=== PATIENT | female | born 1965 | race Caucasian/White ===

== ENCOUNTER 2017-06-18 09:29 | Emergency (ER) | payer BC ==
[2017-06-18 09:45] VITALS: BMI 37.5
[2017-06-18] MEDS ORDERED: Albuterol 0.083% Inhal Sol (2.5 mg/3 mL) UD IH STA (10:01)
[2017-06-18] MEDS ORDERED: Albuterol 0.083% Inhal Sol (2.5 mg/3 mL) UD ONE (10:25)
--- NOTE | 2017-06-18 11:06 | C.PDOC ---
History Of Present Illness 51 year old female presents to the ED c/o nonproductive cough and shortness of breath for the past week. She is status post antibiotic use last week, name of antibiotic unknown. Patient also seen again by her doctor yesterday, who prescribed an albuterol inhaler. Patient reports using the inhaler this morning after which she began feeling her heart racing and became anxious prompting her to come to the ED. She denies fever, sore throat, ear pain, chest pain, rash. She admits to mild rhinorrhea. Patient is a nonsmoker. Time Seen by Provider: 06/18/17 09:43 Chief Complaint (Nursing): Cough, Cold, Congestion History Per: Patient History/Exam Limitations: no limitations Onset/Duration Of Symptoms: Mins Current Symptoms Are (Timing): Better Severity: Mild Reports Recently: Treated By A Physician Past Medical History Reviewed: Historical Data, Nursing Documentation, Vital Signs Vital Signs: Last Vital Signs Temp 97.4 F L 06/18/17 11:46 Pulse 89 06/18/17 11:46 Resp 20 06/18/17 11:46 BP 112/65 06/18/17 11:46 Pulse Ox 99 06/18/17 15:59 - Medical History PMH: Anxiety, Bronchitis Family History: States: No Known Family Hx - Social History Hx Tobacco Use: No Hx Alcohol Use: No Hx Substance Use: No - Immunization History Hx Tetanus Toxoid Vaccination: No Hx Influenza Vaccination: No Hx Pneumococcal Vaccination: No Review Of Systems Except As Marked, All Systems Reviewed And Found Negative. Constitutional: Negative for: Fever ENT: Positive for: Nose Congestion. Negative for: Ear Pain, Throat Pain Cardiovascular: Positive for: Palpitations. Negative for: Chest Pain Respiratory: Positive for: Cough, Shortness of Breath Gastrointestinal: Negative for: Nausea, Vomiting, Abdominal Pain, Diarrhea Skin: Negative for: Rash Psych: Positive for: Anxiety Physical Exam - Physical Exam Appears: Well, Non-toxic, Other (appears anxious, Speaking in full sentences ) Skin: Normal Color, Warm, Dry, No Rash Oral Mucosa: Moist Throat: Normal, No Erythema, No Exudate, No Drooling Neck: Normal, Normal ROM Lymphatic: No Adenopathy Cardiovascular: Rhythm Regular Respiratory: Normal Breath Sounds, No Accessory Muscle Use, No Rales, No Rhonchi , No Wheezing Extremity: Normal ROM, No Pedal Edema, No Calf Tenderness Neurological/Psych: Oriented x3 ED Course And Treatment ECG: Interpreted By Me, Viewed By Me ECG Rhythm: Sinus Rhythm (at 70 bpm) ECG Interpretation: Normal Interpretation Of ECG: Normal axis, no acute ST or T wave changes Rate From EC O2 Sat by Pulse Oximetry: 99 (on room air) Pulse Ox Interpretation: Normal - Radiology CXR: Interpreted by Me, Viewed By Me, Read By Radiologist CXR Interpretation: Yes: No Acute Disease. No: Infiltrates Progress Note: Patient given albuterol nebulizer treatment. CXR ordered and reviewed. Reevaluation Time: 11:30 Reassessment Condition: Improved (Patient reassessed, states she feels better and is comfortable being discharged home. CXR and EKG unremarkable. Explained to patient that albuterol can cause heart racing sensation, which is what she expienced this morning. She already has albuterol inhaler at home. Patient instructed to follow up with PMD in 1-2 days, and understands she should return to ED if symptoms worsen.) Disposition Counseled Patient/Family Regarding: Studies Performed, Diagnosis, Need For Followup - Disposition Referrals: [facility] at [facility] [Outside] Disposition: HOME/ ROUTINE Disposition Time: 11:30 Condition: STABLE Additional Instructions: FOLLOW UP WITH YOUR DOCTOR IN 1-2 DAYS CONTINUE YOUR PREDNISONE, ALBUTEROL INHALER AND TESSALON RETURN TO ER IF SYMPTOMS WORSEN Instructions: Upper Respiratory Infection (ED) Forms: [facility] (Bulgarian) Print Language: PALAUAN - Clinical Impression Clinical Impression: Bronchospasm, Viral URI, Medication side effect - Scribe Statement The provider has reviewed the documentation as recorded by the Catrachita Gonzales Provider Attestation: All medical record entries made by the Charlineibgeoffrey were at my direction and personally dictated by me. I have reviewed the chart and agree that the record accurately reflects my personal performance of the history, physical exam, medical decision making, and the department course for this patient. I have also personally directed, reviewed, and agree with the discharge instructions and disposition.
--- NOTE | 2017-06-18 11:21 | RAD ---
HISTORY: COUGH, SOB COMPARISON: Chest radiograph 06/13/2012. TECHNIQUE: Chest PA and lateral FINDINGS: LUNGS: No active pulmonary disease. PLEURA: No significant pleural effusion identified. No pneumothorax apparent. CARDIOVASCULAR: Normal. OSSEOUS STRUCTURES: No significant abnormalities. VISUALIZED UPPER ABDOMEN: Normal. OTHER FINDINGS: None. IMPRESSION: No interval acute cardiopulmonary disease appreciated.
[2017-06-18 11:47] VITALS: BP 112/65; PULSE 89; RESP 20; TEMP 97.4
[2017-06-18 16:00] VITALS: O2SAT 99
== END 2017-06-18 11:46 | disposition home or self-care (01) ==
LOC: C.ER 09:29
DX: J98.01 Acute bronchospasm (principal); T48.6X5A Adverse effect of antiasthmatics, initial encounter; J06.9 Acute upper respiratory infection, unspecified

== ENCOUNTER 2018-10-13 11:49 | Emergency (ER) | payer BC ==
[2018-10-13 11:49] VITALS: BMI 35.2
[2018-10-13 11:58] VITALS: TEMP 97.6; O2SAT 98
[2018-10-13] MEDS ORDERED: DiphenhydrAMINE 50 mg/ml Inj IVP STA (13:04)
[2018-10-13] MEDS ORDERED: Sodium Chloride 0.9% 1,000 ML IV ONE (13:06)
--- NOTE | 2018-10-13 13:06 | C.PDOC ---
History Of Present Illness 53 yo female w/PMHx of migraine, chr. left side facial " weakness, come in for evaluation of "Left sided headache developed since this AM. Pain is behind my eye and associated with same heaviness on my left side of face, I chronically have". Pt sts, new is that I had some hands shaking with Left sided headache that last few minutes". Pt also reports, hx of chr. sinusitis. Pt admits, was evaluated in past by Neuro with normal results of MRI " few yrs ago". Otherwise, pt denies fever, chills, denies worse headache of life, visual changes, focal deficits, neck pain, CP, SOB, dyspnea, diaphoresis, palpitation, abd. pain, N/V, denies weakness to B/L UEs and LEs, pt denies previous CVA/TIA. At the time of evaluation, pt appears comfortable, not in any apparent distress. Time Seen by Provider: 10/13/18 12:29 Chief Complaint (Nursing): Weakness/Neurological Deficit History Per: Patient Past Medical History Reviewed: Historical Data, Nursing Documentation, Vital Signs Vital Signs: Last Vital Signs Temp 97.6 F 10/13/18 11:51 Pulse 74 10/13/18 12:37 Resp 15 10/13/18 12:37 BP 125/70 10/13/18 12:37 Pulse Ox 98 10/13/18 12:37 - Medical History PMH: Anxiety, Bronchitis Family History: States: Unknown Family Hx - Social History Hx Tobacco Use: No Hx Alcohol Use: Yes Hx Substance Use: No - Immunization History Hx Tetanus Toxoid Vaccination: No Hx Influenza Vaccination: No Hx Pneumococcal Vaccination: No Review Of Systems Except As Marked, All Systems Reviewed And Found Negative. Constitutional: Negative for: Fever, Chills Eyes: Negative for: Vision Change ENT: Negative for: Ear Discharge, Nose Discharge, Throat Pain, Throat Swelling Cardiovascular: Negative for: Chest Pain Respiratory: Negative for: Cough, Shortness of Breath, Wheezing Gastrointestinal: Negative for: Nausea, Vomiting, Abdominal Pain, Diarrhea Musculoskeletal: Negative for: Neck Pain Skin: Negative for: Rash Neurological: Positive for: Headache. Negative for: Weakness, Numbness, Altered Mental Status, Dizziness Physical Exam - Physical Exam Appears: Well, Non-toxic, No Acute Distress Skin: Normal Color, Warm, Dry, No Rash Head: Normacephalic Eye(s): bilateral: PERRL Ear(s): Bilateral: Normal Nose: No Flaring, No Discharge Oral Mucosa: Moist Tongue: No Swelling, No Bite Lips: Normal Appearing Throat: No Erythema, No Drooling Neck: Trachea Midline, Supple Cardiovascular: Rhythm Regular, No Murmur, No JVD Respiratory: No Decreased Breath Sounds, No Accessory Muscle Use, No Stridor, No Wheezing Gastrointestinal/Abdominal: Soft, No Tenderness, No Distention, No Guarding, No Rebound Back: No CVA Tenderness Extremity: Normal ROM, No Pedal Edema, No Deformity, No Swelling Neurological/Psych: Oriented x3, Normal Speech, Normal Cognition, Normal Cranial Nerves, Normal Motor, Normal Sensation, Normal Reflexes ED Course And Treatment - Laboratory Results Result Diagrams: 10/13/18 13:11 10/13/18 13:47 Lab Interpretation: No Acute Changes ECG: Interpreted By Me, Viewed By Me (and ED attending) ECG Interpretation: Normal Interpretation Of ECG: SR@74/min, NAD, no acute T wave or ST-T changes O2 Sat by Pulse Oximetry: 98 Pulse Ox Interpretation: Normal - CT Scan/US CT head Other Rad Studies (CT/US): Radiology Report Reviewed CT/US Interpretation: Creator : Margaret Meyer. Dictator : Sophie Ricketts MD. Laboratory Miller : Weaving Machine Operator : Sophie Ricketts MD. Approver2 : Report Date : 10/13/2018 13:32:16. My Comment : . Date of service: 10/13/2018. PROCEDURE: CT HEAD WITHOUT CONTRAST. HISTORY: Headache. COMPARISON: Noncontrast head CT performed 11/21/13. TECHNIQUE: Axial computed tomography images were obtained through the head/brain without intravenous contrast. Radiation dose: Total exam DLP = 1114.75 mGy-cm. This CT exam was performed using one or more of the following dose reduction techniques: Automated exposure control, adjustment of the mA and/or kV according to patient size, and/or use of iterative reconstruction technique. FINDINGS: HEMORRHAGE: No intracranial hemorrhage. BRAIN: No mass effect or edema. The de la o-white matter differentiation appears intact. Please note that MRI with diffusion imaging is more sensitive in the detection of acute ischemic event. VENTRICLES: No hydrocephalus. CALVARIUM: Unremarkable. PARANASAL SINUSES: Unremarkable as visualized. No significant inflammatory changes. MASTOID AIR CELLS: Unremarkable as visualized. No inflammatory changes. OTHER FINDINGS: None. IMPRESSION: No acute intracranial pathology identified. Progress Note: Case discussed with , pt's neurologist, no acute abnormalities were found on MRI of brain from 2017. Pt was OBS in ED for 2 hrs and reports improvemnet in sx. Pt is afebrile, hemodynamicaly stable. Non- toxic. AMbulatory in ED with stable gait. Neurologicaly intact. Blood work review and appears without acute abnoramlities. CT head review- no acute changes. Results review and discussed with pt, options admision vs discharge w ith outpt f/u with tomorrow discussed. Pt prefer to go home now with outpt f/u by Neuro. Pt advised, return to ED immediately if worsneing or new changes. Pt understand and agrees with plan. Disposition Counseled Patient/Family Regarding: Studies Performed, Diagnosis, Need For Followup, Rx Given - Disposition Referrals: Austin Downey MD [Staff Provider] - Disposition: HOME/ ROUTINE Disposition Time: 14:22 Condition: STABLE Additional Instructions: Encourage fluids Follow up with Neurology tomorrow for re-evaluation Return to ED immediately if no improvement, new changes for further evaluation Instructions: Headache, Adult (DC), Migraine Headache (DC) Forms: [employer] (Iranian) - Clinical Impression Clinical Impression: Headache
[2018-10-13 13:28] LABS: SQUAMOUS EPITHIAL < 1 /hpf (0-5); URINE BILIRUBIN NEGATIVE (NEGATIVE); URINE BLOOD NEGATIVE (NEGATIVE); URINE CLARITY Hazy (Clear); URINE COLOR Yellow (YELLOW); URINE GLUCOSE (UA) NORMAL (Normal); URINE LEUKOCYTE ESTERASE NEG Leu/uL (Negative); URINE PROTEIN NEGATIVE (NEGATIVE); URINE UROBILINOGEN NORMAL mg/dL (0.2-1.0)
[2018-10-13] MEDS ORDERED: DiphenhydrAMINE 50 mg/ml Inj ONE (13:28)
--- NOTE | 2018-10-13 13:50 | CT ---
Date of service: 10/13/2018 PROCEDURE: CT HEAD WITHOUT CONTRAST. HISTORY: Headache COMPARISON: Noncontrast head CT performed 11/21/13 TECHNIQUE: Axial computed tomography images were obtained through the head/brain without intravenous contrast. Radiation dose: Total exam DLP = 1114.75 mGy-cm. This CT exam was performed using one or more of the following dose reduction techniques: Automated exposure control, adjustment of the mA and/or kV according to patient size, and/or use of iterative reconstruction technique. FINDINGS: HEMORRHAGE: No intracranial hemorrhage. BRAIN: No mass effect or edema. The de la o-white matter differentiation appears intact. Please note that MRI with diffusion imaging is more sensitive in the detection of acute ischemic event. VENTRICLES: No hydrocephalus. CALVARIUM: Unremarkable. PARANASAL SINUSES: Unremarkable as visualized. No significant inflammatory changes. MASTOID AIR CELLS: Unremarkable as visualized. No inflammatory changes. OTHER FINDINGS: None. IMPRESSION: No acute intracranial pathology identified.
[2018-10-13 13:59] LABS: INR 1.1; PROTHROMBIN TIME 11.6 SECONDS (9.7-12.2)
[2018-10-13 14:01] LABS: BASO % 0.6 % (0.0-2.0); EOS # 0.1 K/uL (0.0-0.7); HEMOGLOBIN 13.5 g/dL (11.0-16.0); LYMPH # 1.6 K/uL (1.0-4.3); LYMPH % 24.8 % (20.0-40.0); MEAN CORPUSCULAR HEMOGLOBIN 27.2 pg (27.0-31.0); MEAN CORPUSCULAR HGB CONC 32.3 g/dL (33.0-37.0); MONO # 0.4 K/uL (0.0-0.8); NEUT # 4.4 K/uL (1.8-7.0); NEUT % 66.6 % (50.0-75.0); NRBC % 0.2 % (0.0-2.0); RBC 4.97 Mil/uL (3.80-5.20); RED CELL DISTRIBUTION WIDTH 13.9 % (11.5-14.5); WHITE BLOOD COUNT 6.6 K/uL (4.8-10.8)
[2018-10-13 14:02] LABS: MEAN CELL VOLUME 84.3 fL (81.0-99.0)
[2018-10-13 14:06] LABS: ALB/GLOB RATIO 1.5 (1.0-2.1); ALBUMIN 4.5 g/dL (3.5-5.0); ALT/SGPT 29 U/L (9-52); AST/SGOT 30 U/L (14-36); BLOOD UREA NITROGEN 14 mg/dL (7-17); CALCIUM 9.2 mg/dl (8.6-10.4); GFR NON-AFRICAN AMERICAN > 60
[2018-10-13 15:16] VITALS: BP 97/45; PULSE 71; RESP 18
--- NOTE | 2018-10-14 10:56 | CARD ---
APPROVED REPORT Date of service: 10/13/2018 EKG Measurement Heart [id number] <Conclusion> Normal sinus rhythm Normal ECG
== END 2018-10-13 15:53 | disposition home or self-care (01) ==
LOC: C.ER 11:49
DX: R51 Headache (principal)
CPT/HCPCS: 70450; 80053; 81001; 84484; 85025; 85610; 85730; 93005; 96361; 96374; 96375; 99285; J0780; J1200; J7030